=== PATIENT | female | born 1995 | race Caucasian/White ===

== ENCOUNTER 2018-07-25 18:51 | Emergency (ER) | payer OTHER ==
[2018-07-25 18:58] VITALS: BP 121/83; PULSE 74; TEMP 98.4; BMI 30.7
[2018-07-25] MEDS ORDERED: KETOROLAC TROMETHAMINE 30 MG/1 ML VIAL IM ONE (19:23)
--- NOTE | 2018-07-25 19:28 | PDOC ---
History of Present Illness - General Chief Complaint: Ear Problem Stated Complaint: EAR PAIN Time Seen by Provider: 07/25/18 19:07 History Source: Patient Exam Limitations: No Limitations - History of Present Illness Initial Comments: 07/25/18 19:24 22 year old female with medical history of asthma, no significant surgical history presents crying with pain in left ear and left side of throat. Patient reports pain since yesterday, sniffling x 3 days took benadryl with no relief of symptoms. Denies fever or chills. Timing/Duration: reports: yesterday Severity: reports: mild Associated Symptoms: reports: earache, nasal congestion, nasal drainage. denies : fever/chills Aspirin Received prior to arrival: Yes: no aspirin today ASA Contraindications(Core Measure): No: Allergy Beta Baltazar Contraindications(Core Measure): Yes: Not Prescribed Beta Baltazar Given by EMS(Core Measure): No Beta Baltazar Taken at Home(Core Measure): No Beta Baltazar Not Indicated at this Time(Core Measure): No Past History - Travel Traveled outside of the country in the last 30 days: No Close contact w/someone who was outside of country & ill: No - Past Medical History Allergies/Adverse Reactions: Allergies Allergy/AdvReac Type Severity Reaction Status Date / Time No Known Allergies Allergy Verified 07/25/18 18:55 Home Medications: Ambulatory Orders Ondansetron [Zofran Odt -] 4 mg SL BID PRN #14 od.tablet 12/28/14 Amoxicillin - [Amoxicillin 500mg Capsule -] 500 mg PO TID #21 capsule 07/25/18 Desloratadine/Pseudoephedrine [Clarinex-D 12 Hour Tablet] 1 each PO BID #10 tbmp.12hr 07/25/18 Ibuprofen 400 mg PO TID #20 tablet 07/25/18 Anemia: Yes (MILD.) COPD: No - Immunization History Td Vaccination: Yes Immunization Up to Date: Yes - Suicide/Smoking/Psychosocial Hx Smoking Status: No Smoking History: Never smoked Years of Tobacco Use: 0 Number of Cigarettes Smoked Daily: 20 Cigars Per Day: 0 Information on smoking cessation initiated: No 'Breaking Loose' booklet given: 06/05/13 Hx Alcohol Use: No Drug/Substance Use Hx: No Substance Use Type: None Respiratory Specific PMHX - Complaint Specific PMHX Angina: No Bronchitis: No Pneumonia: No Pulmonary Embolus: No TB (Tuberculosis): No Review of Systems - Review of Systems Able to Perform ROS?: Yes Is the patient limited Portuguese proficient: No Constitutional: No: Chills, Fever, Malaise HEENTM: Yes: Ear Pain, Throat Pain Respiratory: No: Shortness of Breath, SOB at Rest, Stridor, Wheezing Cardiac (ROS): No: Chest Pain, Irregular Heart Rate Musculoskeletal: No: Back Pain, Joint Pain, Neck Pain Integumentary: No: Erythema Neurological: No: Paresthesia, Tingling Psychiatric: No: Stressors *Physical Exam - Vital Signs Last Vital Signs Temp Pulse Resp BP Pulse Ox 98.4 F 74 16 121/83 99 07/25/18 18:55 07/25/18 18:55 07/25/18 18:55 07/25/18 18:55 07/25/18 18:55 - Physical Exam General Appearance: Yes: Nourished, Appropriately Dressed HEENT: positive: Pharynx Normal, Rhinorrhea, TM Bulging, TM Erythema. negative : Tonsillar Exudate, Tonsillar Erythema, Nasal Congestion Neck: positive: Supple. negative: Lymphadenopathy (R), Lymphadenopathy (L) Respiratory/Chest: positive: Lungs Clear, Normal Breath Sounds Cardiovascular: positive: Regular Rhythm, Regular Rate, S1, S2 Neurologic: positive: surgical resident II-XII NML intact, Fully Oriented, Alert Moderate Sedation - Procedure Monitoring Vital Signs: Procedure Monitoring Vital Signs Temperature 98.4 F 07/25/18 18:55 Pulse Rate 74 07/25/18 18:55 Respiratory Rate 16 07/25/18 18:55 Blood Pressure 121/83 07/25/18 18:55 O2 Sat by Pulse Oximetry (%) 99 07/25/18 18:55 Medical Decision Making - Medical Decision Making 07/25/18 19:28 22 year old female with medical history of asthma, no significant surgical history presents crying with pain in left ear and left side of throat. Plan urine preg toradol throat culture sent otitis media of left ear rx: amoxicillin *DC/Admit/Observation/Transfer Diagnosis at time of Disposition: Otitis media Qualifiers: Otitis media type: allergic Chronicity: acute Laterality: left Recurrence: non- recurrent Qualified Code(s): H65.112 - Acute and subacute allergic otitis media (mucoid) (sanguinous) (serous), left ear Allergic rhinitis Qualifiers: Allergic rhinitis trigger: unspecified Allergic rhinitis seasonality: seasonal Qualified Code(s): J30.2 - Other seasonal allergic rhinitis - Discharge Dispostion Disposition: HOME Condition at time of disposition: Good Decision to Admit order: No - Prescriptions Prescriptions: Amoxicillin - [Amoxicillin 500mg Capsule -] 500 mg PO TID #21 capsule Desloratadine/Pseudoephedrine [Clarinex-D 12 Hour Tablet] 1 each PO BID #10 tbmp.12hr Ibuprofen 400 mg PO TID #20 tablet - Referrals Referrals: Alana Yan MD [Primary Care Provider] - - Patient Instructions Printed Discharge Instructions: Middle Ear Infection, Allergic Rhinitis Additional Instructions: Please take all medication as prescribed Call primary physician for follow up appointment - Post Discharge Activity Forms/Work/School Notes: Back to Work
[2018-07-25] MEDS ORDERED: KETOROLAC TROMETHAMINE 30 MG/1 ML VIAL ONE (19:33)
== END 2018-07-25 19:44 | disposition home or self-care (01) ==
LOC: JERFT 18:51
PROC: 3E0233Z Introduction of Anti-inflammatory into Muscle, Percutaneous Approach (ICD-10-PCS; principal; 2018-07-25)
DX: H65.112 Acute and subacute allergic otitis media (mucoid) (sanguinous) (serous), left ear (principal); J30.2 Other seasonal allergic rhinitis
CPT/HCPCS: 84703; 87070; 87880; 96372; 99281-25

== ENCOUNTER 2021-01-06 12:51 | Emergency (ER) | payer OTHER ==
[2021-01-06 13:26] VITALS: BP 107/85; PULSE 71; TEMP 98.4; BMI 36.6
[2021-01-06] MEDS ORDERED: ACETAMINOPHEN 325 MG TABLET (FP) PO ONE (13:53)
[2021-01-06] MEDS ORDERED: KETOROLAC TROMETHAMINE 60 MG/2 ML VIAL IM ONE (13:53)
[2021-01-06] MEDS ORDERED: LIDOCAINE 5% TOPICAL PATCH TP ONE (13:53)
[2021-01-06] MEDS ORDERED: diazePAM 5 MG TABLET PO ONE (13:54)
[2021-01-06] MEDS ORDERED: KETOROLAC TROMETHAMINE 30 MG/1 ML VIAL ONE (13:59)
[2021-01-06] MEDS ORDERED: ACETAMINOPHEN 325 MG TABLET (FP) ONE (13:59)
[2021-01-06] MEDS ORDERED: LIDOCAINE 5% TOPICAL PATCH ONE (13:59)
[2021-01-06] MEDS ORDERED: diazePAM 5 MG TABLET ONE (14:00)
[2021-01-06] MEDS ORDERED: LIDOCAINE PATCH REMOVAL MC SCH (22:00)
== END 2021-01-06 16:40 | disposition home or self-care (01) ==
LOC: JER 12:51
PROC: 3E0233Z Introduction of Anti-inflammatory into Muscle, Percutaneous Approach (ICD-10-PCS; principal; 2021-01-06)
DX: M54.2 Cervicalgia (principal); M54.5 Low back pain; V49.40XA Driver injured in collision with unspecified motor vehicles in traffic accident, initial encounter
CPT/HCPCS: 72040-TC; 72070-TC-FY; 72100-TC-FY; 99285-25

== ENCOUNTER 2021-02-26 10:30 | Emergency (ER) | payer OTHER ==
[2021-02-26 11:04] VITALS: BP 95/64; PULSE 64; TEMP 98; BMI 36.6
[2021-02-26] MEDS ORDERED: CYCLOBENZAPRINE HCL 10 MG TABLET (FP) PO ONE (12:25)
[2021-02-26] MEDS ORDERED: KETOROLAC TROMETHAMINE 30 MG/1 ML VIAL IM ONE (12:25)
[2021-02-26] MEDS ORDERED: CYCLOBENZAPRINE HCL 10 MG TABLET (FP) ONE (13:10)
[2021-02-26] MEDS ORDERED: KETOROLAC TROMETHAMINE 30 MG/1 ML VIAL ONE (13:10)
== END 2021-02-26 13:37 | disposition home or self-care (01) ==
LOC: JERFT 10:30
PROC: 3E0233Z Introduction of Anti-inflammatory into Muscle, Percutaneous Approach (ICD-10-PCS; principal; 2021-02-26)
DX: M54.41 Lumbago with sciatica, right side (principal)
CPT/HCPCS: 96372; 99284-25